=== PATIENT | male | born 1955 | race Caucasian/White ===

== ENCOUNTER 2018-04-12 09:27 | Inpatient (IN) | payer BC ==
--- NOTE | 2018-04-12 08:01 | HP ---
[facility] - Chief Complaint Chief Complaint: right knee pain - Past Medical History Allergies/Adverse Reactions: Allergies Allergy/AdvReac Type Severity Reaction Status Date / Time No Known Allergies Allergy Verified 03/25/18 11:26 - Current Medications Current Medications: Home Medications Medication Instructions Recorded Folic Acid/Multivit-Min/Lutein 1 each PO DAILY 03/25/18 [Multi-Vitamin Gummies] Satellite Physical Exam - Physical Examination General Appearance: Well Nourished, Well Developed, Alert & Oriented x3 ENT: Clear Lung: Normal air movement Heart: Regular rate & rhythm Extremities: Other (right knee- +swelling, + ttp, decr rom, nvi xrays show grade tricompartmental djd) Neurological: Intact, Alert, Oriented Satellite Impression/Plan - Impression/Plan Impression: right knee djd Operative Procedure: right haseeb tkr Date to be Performed: 04/12/18
[2018-04-12] MEDS ORDERED: TRANEXAMIC ACID 1000 MG/10 ML VIAL IVPUSH ONE (10:32)
[2018-04-12] MEDS ORDERED: GABAPENTIN 300 MG CAPSULE (FP) PO ONE (10:32)
[2018-04-12] MEDS ORDERED: oxyCODONE HCL 10 MG SUSTAINED ACTING TABLET PO ONE (10:32)
[2018-04-12] MEDS ORDERED: CELECOXIB 200 MG CAPSULE PO ONE (10:32)
[2018-04-12] MEDS ORDERED: CEFAZOLIN 2 GM in DEXTROSE 5%-WATER - 50 ML IVPB ONE (10:32)
[2018-04-12] MEDS ORDERED: BUPIVACAINE LIPOSOME/PF (EXPAREL) 266 MG/20 ML VIAL ONE (12:23)
[2018-04-12] MEDS ORDERED: MIDAZOLAM HCL 2 MG/2 ML SINGLE DOSE VIAL ONE ×2 (12:23→13:01)
[2018-04-12] MEDS ORDERED: PROPOFOL 20 ML ONE (13:01)
[2018-04-12] MEDS ORDERED: ceFAZolin SODIUM 1 GM VIAL ONE ×2 (13:23→14:06)
[2018-04-12] MEDS ORDERED: VANCOMYCIN 1,000 MG VIAL (RESTRICTED TO ID ONLY) ONE (13:23)
[2018-04-12] MEDS ORDERED: ONDANSETRON 4 MG/2 ML VIAL ONE (14:06)
[2018-04-12] MEDS ORDERED: DEXAMETHASONE SOD PHOSPHATE 4 MG/1 ML VIAL ONE (14:06)
[2018-04-12] MEDS ORDERED: TRANEXAMIC ACID 1000 MG/10 ML VIAL ONE (14:32)
[2018-04-12] MEDS ORDERED: VANCOMYCIN 1,000 MG VIAL (RESTRICTED TO ID ONLY) IVPB ONE (15:45)
[2018-04-12] MEDS ORDERED: MAG HYDROX/AL HYDROX/SIMETH 30 ML UNIT-DOSE CUP PO PRN (16:17)
[2018-04-12] MEDS ORDERED: MAGNESIUM HYDROX 2400MG/30ML ORAL SUSPENSION 30 ML CUP PO PRN (16:17)
[2018-04-12] MEDS ORDERED: ONDANSETRON 4 MG/2 ML VIAL IVPUSH PRN ×2 (16:17→16:35)
--- NOTE | 2018-04-12 16:19 | OP ---
Operative Note - Note: Operative Date: 04/12/18 (fabio) Pre-Operative Diagnosis: right knee djd Operation: right haseeb tkr Post-Operative Diagnosis: Same as Pre-op Surgeon: Marshall Fontanez Sales Agent Insurance: [employer] Anesthesiologist/CLINICAL APPLICATIONS MANAGER: Anderson Hubbard Anesthesia: Spinal, Local Specimens Removed: bone fragments Estimated Blood Loss (mls): 200 Operative Report Dictated: Yes
[2018-04-12] MEDS ORDERED: LACTATED RINGERS SOLUTION 1,000 ML IV SCH (16:30)
[2018-04-12] MEDS ORDERED: PROMETHAZINE HCL 25 MG/1 ML VIAL IVPUSH PRN (16:35)
[2018-04-12] MEDS ORDERED: LABETALOL HCL 5 MG/1 ML (100MG/20 ML VIAL) IVPUSH ONE ×2 (16:55→16:59)
[2018-04-12] MEDS ORDERED: LABETALOL HCL 5 MG/1 ML (100MG/20 ML VIAL) ONE (16:57)
[2018-04-12] MEDS ORDERED: METOPROLOL TARTRATE 5 MG/5 ML VIAL IVPUSH ONE ×2 (17:03→17:05)
[2018-04-12] MEDS ORDERED: METOPROLOL TARTRATE 25 MG TABLET (FP) PO ONE ×3 (17:13→23:15)
--- NOTE | 2018-04-12 17:19 | CON.CARD ---
Consult Consult Specialty:: cardiology Reason for Consultation:: new-onset AF (post-op TKR under spinal anesthesia). - History of Present Illness Chief Complaint: post-op right TKR; no chest pain or dyspnea; no palpitations History of Present Illness: 62 yr old man with PMHx current cigarette smoker, obesity, now admitted when noted to be in atrial fibrillation post-total right knee replacement under spinal anesthesia. No prior hx AF, HTN, or other cardiac pathologies.Pt says he has been extremely anxious in the days leading up tot eh surgery. Denies feeling palpitations, dizziness, or chest pain. - History Source History Provided By: Patient, Medical Record Limitations to Obtaining History: No Limitations - Past Medical History Cardio/Vascular: Yes: AFIB (new onset) Psych: Yes: Anxiety - Past Surgical History Past Surgical History: Yes: Joint Replacement - Alcohol/Substance Use Hx Alcohol Use: Yes (4 BEERS DAILY) - Smoking History Smoking history: Current some day smoker Have you smoked in the past 12 months: Yes Aproximately how many cigarettes per day: 4 If you are a former smoker, when did you quit?: SMOKES ON THE WEEKENDS Home Medications - Allergies Allergies/Adverse Reactions: Allergies Allergy/AdvReac Type Severity Reaction Status Date / Time No Known Allergies Allergy Verified 03/25/18 11:26 - Home Medications Home Medications: Ambulatory Orders Folic Acid/Multivit-Min/Lutein [Multi-Vitamin Gummies] 1 each PO DAILY 03/25/18 Aspirin [ASA -] 325 mg PO DAILY@0800 tablet 04/12/18 Oxycodone HCl/Acetaminophen [Percocet 5-325 mg Tablet -] 1 - 2 tab PO Q6H #50 tab MDD 8 04/12/18 Family Disease History - Family Disease History Family History: Denies Review of Systems - Review of Systems Constitutional: reports: No Symptoms Eyes: reports: No Symptoms HENT: reports: No Symptoms Neck: reports: No Symptoms Cardiovascular: reports: No Symptoms Respiratory: reports: No Symptoms Gastrointestinal: reports: No Symptoms Genitourinary: reports: No Symptoms Breasts: reports: No Symptoms Reported Musculoskeletal: reports: Joint Pain Integumentary: reports: Incision Neurological: reports: No Symptoms Endocrine: reports: No Symptoms Hematology/Lymphatic: reports: No Symptoms Psychiatric: reports: No Symptoms - Risk Factors Known Risk Factors: Yes: Age, Gender, Hypertension, Smoking Vital Signs: Vital Signs Temperature 98.1 F 04/12/18 16:27 Pulse Rate 112 H 04/12/18 16:35 Respiratory Rate 20 04/12/18 16:35 Blood Pressure 139/60 04/12/18 16:35 O2 Sat by Pulse Oximetry (%) 99 04/12/18 16:35 Constitutional: Yes: Anxious Eyes: Yes: WNL HENT: Yes: WNL Neck: Yes: WNL Respiratory: Yes: WNL Gastrointestinal: Yes: WNL Renal/: No: Anuria Cardiovascular: Yes: Regular Rate and Rhythm JVD: No Carotid Bruit: No PMI: Non-Displaced Heart Sounds: Yes: S1, S2, S4 Musculoskeletal: Yes: Joint Swelling, Muscle Pain, Other (s/p TKR) Edema: No Peripheral Pulses WNL: Yes Integumentary: Yes: Incision Neurological: Yes: WNL Psychiatric: Yes: Alert, Oriented, Other (anxiety) Imaging - Results EKG: Image Reviewed Problem List - Problems (1) Atrial fibrillation with RVR Assessment/Plan: Start PO metoprolol tartrate 25 mg bid, with IVPB 5 mg PRN As discussed with Dr. Mirza, if AF persists, will start IV heparin as soon as felt safe by surgical team (per orthopedist in this case: 24 hours from the surgery, which finished at 4 pm today). ECHO for LVEF, chamber sizes, valve status. TNI serially. TSH. Pt's note from PMD mentions no significant past medical Hx. Code(s): I48.91 - UNSPECIFIED ATRIAL FIBRILLATION (2) HTN (hypertension) Assessment/Plan: Started metoprolol; f/u HR and BP serially. F/u ECHO for LVEF, chambers sizes and thicknesses, valve status. Code(s): I10 - ESSENTIAL (PRIMARY) HYPERTENSION (3) Obesity Code(s): E66.9 - OBESITY, UNSPECIFIED (4) Total knee replacement status Assessment/Plan: f/u with surgeon. Code(s): Z96.659 - PRESENCE OF UNSPECIFIED ARTIFICIAL KNEE JOINT (5) Hyperlipidemia Assessment/Plan: f/u lipid panel Code(s): E78.5 - HYPERLIPIDEMIA, UNSPECIFIED
[2018-04-12 17:29] LABS: ALBUMIN 3.8 g/dl (3.4-5.0); ALK PHOS 123 U/L (45-117); ANION GAP 6 MMOL/L (8-16); BILIRUBIN,TOTAL 0.8 mg/dl (0.2-1); BLOOD UREA NITROGEN 16 mg/dl (7-18); CALCIUM 8.8 mg/dl (8.5-10); CHLORIDE 103 mmol/L (98-107); CO2 27 mmol/L (21-32); GLUCOSE,RANDOM 114 mg/dl (74-106); POTASSIUM 4.6 mmol/L (3.5-5.1); SGOT/AST 29 U/L (15-37); SGPT/ALT 25 U/L (13-61); SODIUM 136 mmol/L (136-145); TOT PROT 6.7 g/dl (6.4-8.2)
[2018-04-12] MEDS ORDERED: oxyCODONE HCL 5 MG TABLET PO ONE ×2 (17:35→20:00)
[2018-04-12] MEDS ORDERED: ACETAMINOPHEN 325 MG TABLET (FP) PO ONE (17:38)
[2018-04-12] MEDS ORDERED: oxyCODONE HCL 5 MG TABLET ONE (17:42)
[2018-04-12] MEDS ORDERED: ACETAMINOPHEN 325 MG TABLET (FP) ONE (17:43)
[2018-04-12 18:31] LABS: INR 1.06 (0.82-1.09); PROTHROMBIN TIME (PATIENT) 11.9 SEC (10.2-13.0)
--- NOTE | 2018-04-12 18:31 | SPEC ---
DATE OF OPERATION: 04/12/2018 PREOPERATIVE DIAGNOSIS: Degenerative joint disease, right knee. POSTOPERATIVE DIAGNOSIS: Degenerative joint disease, right knee. PROCEDURE: Right total knee replacement with robotic-assisted navigation (Makoplasty). SURGICAL ATTENDING: Marshall Fontanez M.D. PATIENT PORTAL CONCIERGE: Mina Crowell ANESTHESIA: Regional and spinal. CLOSURE: A cemented 6 femur, 6 tibia, 9 polyethylene, 38 patella, number 1 Vicryl fascia, 0 and 2-0 subcutaneous, 3-0 Monocryl subcuticular with skin glue for skin, 4-0 undyed Vicryl for pin site. ESTIMATED BLOOD LOSS: Approximately 100 mL. COMPLICATIONS: None. CONDITION: To recovery room in stable condition. DESCRIPTION OF OPERATIVE PROCEDURE: Patient was taken to the operating room on April 12, 2018. Regional and general anesthesia was administered by the anesthesiologist. IV Kefzol and TXA were administered by the anesthesiologist. Well-padded pneumatic tourniquet was placed on the proximal thigh. The right lower extremity was prepped and draped in the usual sterile fashion. The leg was exsanguinated with an Esmarch bandage, and tourniquet was inflated to 275 mmHg. A 12 to 15-cm longitudinal midline incision was incised while centered over the patella. The dissection was carried down to the level of the extensor mechanism with sufficient flaps made to adequately perform the procedure. A medial parapatellar arthrotomy was then performed. We made a cuff of tissue on the patella for later closure. The patella was inverted, the knee was flexed up. The fat pad was excised. The subperiosteal dissection was on the anteromedial proximal tibia around towards the direction of the MCL. The ACL and the PCL were transected and debrided. The meniscal remnants of the medial and lateral meniscus were debrided and removed. This allowed the knee to be able to "be brought forward." The checkpoints were malleted into the tibia and into the femur. Two threaded pins were drilled anteroposteriorly proximal to the knee through the previous incision, through the anterior cortex, then just engaging the posterior cortex. To these pins was assembled the femoral navigation array. One handbreadth below the tibial tubercle, 2 stab incisions were used to drill 2 threaded pins in parallel fashion into the tibia, again through the anterior cortex and just engaging the posterior cortex. To these pins was fastened the tibial arrays. The knee was then registered with the navigation device with center of rotation of the hip, medial and lateral malleoli, both checkpoints, and multiple points on both the femur and the tibia to ensure excellent registration. The navigation device was directed off the "top of the bubbles" on both the femur and the tibia. The navigation passed within less than 0.5 mm to plan. The knee was then thoroughly inspected to remove all osteophytes both medially, laterally, and on the femur and the tibia, and whatever osteophytes were available for dissection. The knee was then taken to extension and to flexion, and stressed in both varus and valgus to assess flexion gaps. The virtual position of the components on the navigation device were then manipulated to optimize the position and to ensure equal gaps in both flexion and extension, and both medially and laterally. The robot was then brought into the field and was registered. The cuts were then made both on the femur and on the tibia as to plan. All osteophytes posteriorly were then removed as well. The gaps were then measured again in flexion and extension to be equal in both flexion and extension and medial and laterally. The femoral notch was then made, as we were doing a posterior stabilizing component, with the appropriate sized box. Trial reduction of the femur achieved excellent [id number] fit. A tibial baseplate of appropriate polyethylene thickness was "floated in the knee." It was ensured to be in the excellent position by navigation devices and was pinned in place. The knee was taken through a range of motion, and found to have excellent stability throughout flexion and extension. The patella was calibrated for thickness and osteotomized down to the appropriate level. The appropriate lollipop was used to drill the lug holes in the patella and the trial button was applied. The knee was taken through a range of motion and found to have excellent tracking of the patella, and patella from full extension to full flexion. Trial components were removed, the keel was punched and drilled, and a sclerotic bone on the tibia was drilled to help with cement interdigitation. The knee was thoroughly irrigated with the pulse antibiotic research investigator. The real components were then cemented in using monitored arrangement cement techniques with antibiotic cement, and pressurization and extension. After the cement was hardened, the knee was thoroughly inspected to remove any extra cement. The real polyethylene component was then clipped into place. Range of motion, stability, and tracking were as described earlier. The checkpoints and the pins were removed. The knee was thoroughly irrigated with antibiotic irrigation. Vancomycin powder was placed into the knee for antibiotic prophylaxis. The medial parapatellar arthrotomy was then closed using number 1 Vicryl interrupted suture. After closure of the deep layer, the knee was taken through a range of motion, and found to have excellent stability of the patella with no dislocation and no undue tension on the repair. The subcutaneous was pulse antibiotic irrigated, and was then closed with 2-0 Vicryl, 3-0 Monocryl subcuticular with the skin glue for the skin. The distal tibial pin site was irrigated thoroughly as well and then closed with 4-0 undyed Vicryl. A sterile Aquacel dressing was applied, followed by a Paul dressing. Tourniquet was deflated. Total tourniquet time was approximately 75 minutes. No complications. Patient was awakened from anesthesia and transferred to recovery room in stable condition. Postoperative x-rays revealed excellent position of the components. Fernanda [id number]
[2018-04-12] MEDS: oxyCODONE HCL 10 MG SUSTAINED ACTING TABLET PO SCH (22:40)
[2018-04-12] MEDS: CEFAZOLIN 2 GM/D5W 2 GM/50 ML ML IVPB SCH (22:41)
[2018-04-12] MEDS: SENNOSIDES/DOCUSATE COMBO (SENNA PLUS) TABLET (UD) PO SCH (22:41)
[2018-04-12] MEDS: ACETAMINOPHEN 325 MG TABLET (FP) PO SCH (22:42)
[2018-04-13 02:16] VITALS: BMI 37.2
[2018-04-13] MEDS: oxyCODONE HCL 5 MG TABLET PO PRN ×4 (02:54→18:41)
[2018-04-13] MEDS: CEFAZOLIN 2 GM/D5W 2 GM/50 ML ML IVPB SCH (05:47)
[2018-04-13] MEDS: ACETAMINOPHEN 325 MG TABLET (FP) PO SCH ×4 (05:51→22:05)
[2018-04-13 06:46] LABS: HEMATOCRIT 40.5 % (35.4-49); HEMOGLOBIN 13.8 GM/dL (11.7-16.9); MCH 30.9 pg (25.7-33.7); MCHC 34.2 g/dl (32.0-35.9); MEAN CELL VOLUME 90.4 fl (80-96); MEAN PLT VOLUME 8.1 fl (7.5-11.1); PLATELET COUNT 252 K/MM3 (134-434); RBC 4.48 M/mm3 (4.00-5.60); RDW 12.5 % (11.9-15.9); WHITE BLOOD COUNT 15.4 K/mm3 (4.0-10.0)
[2018-04-13 07:14] LABS: CHOLESTEROL 157 mg/dL (50-200); HDL CHOLESTEROL 55 mg/dL (40-60); TRIGLYCERIDES 84 mg/dL (0-150)
[2018-04-13] MEDS ORDERED: ASPIRIN 325 MG TABLET PO SCH (08:00)
--- NOTE | 2018-04-13 08:40 | PN ---
Progress Note (short form) - Note Progress Note: PATIENT TRANSFERRED FROM [facility] TO NEW ONSRT AFIB POST OP FROM RIGHT [facility]. BANDAGES DRY AND INTACT CALF SOFT AND NT NVI + STRAIGHT LEG ABILITY AROM 0-60 IMP: DOING WELL ORTHOPEDICALLY POD #1 R TKR WITH NEW ONSET AFIB PLAN: PT PER USUAL TKR PROTOCOL. CARDIAC W/U IN PROGRESS. PATIENT CAN BE ANTICOAGULATED IF CARDIOLOGY REQUIRES IT. OTHERWISE CONTINUE WITH ASA 325 DAILY. PT
[2018-04-13] MEDS: METOPROLOL TARTRATE 25 MG TABLET (FP) PO SCH ×2 (09:06→22:04)
[2018-04-13] MEDS: oxyCODONE HCL 10 MG SUSTAINED ACTING TABLET PO SCH ×2 (09:06→22:04)
[2018-04-13] MEDS: SENNOSIDES/DOCUSATE COMBO (SENNA PLUS) TABLET (UD) PO SCH ×2 (09:07→22:05)
[2018-04-13] MEDS: MULTIVITAMINS (DAILY MVI) TABLET (FP) PO SCH (09:07)
[2018-04-13] MEDS: PANTOPRAZOLE 40 MG TABLET (FP) PO SCH (09:07)
--- NOTE | 2018-04-13 10:00 | PN ---
Progress Note, Physician History of Present Illness: 62 yr old man with PMHx current cigarette smoker, obesity,now admitted when noted to be in atrial fibrillation post-total right knee replacement under spinal anesthesia. No prior hx AF or other cardiac pathologies. - Current Medication List Current Medications: Active Medications Acetaminophen (Tylenol -) 650 mg PO Q6H [facility] Stop: 04/15/18 16:44 Last Admin: 04/13/18 05:51 Dose: Not Given Al Hydroxide/Mg Hydroxide (Mylanta Oral Suspension -) 30 ml PO Q4H PRN PRN Reason: DYSPEPSIA Magnesium Hydroxide (Milk Of Magnesia -) 30 ml PO DAILY PRN PRN Reason: CONSTIPATION Metoprolol Tartrate (Lopressor -) 25 mg PO BID [facility] Last Admin: 04/13/18 09:06 Dose: 25 mg Multivitamins/Minerals/Vitamin C (Tab-A-Vit -) 1 tab PO DAILY [facility] Last Admin: 04/13/18 09:07 Dose: 1 tab Ondansetron HCl (Zofran Injection) 4 mg IVPUSH Q6H PRN PRN Reason: NAUSEA Ondansetron HCl (Zofran Injection) 4 mg IVPUSH Q6H PRN PRN Reason: NAUSEA AND/OR VOMITING Oxycodone HCl (Roxicodone -) 5 mg PO Q3H PRN PRN Reason: PAIN LEVEL 1-5 Last Admin: 04/13/18 05:51 Dose: 5 mg Oxycodone HCl (Roxicodone -) 10 mg PO Q3H PRN PRN Reason: PAIN LEVEL 6-10 Last Admin: 04/13/18 02:54 Dose: 10 mg Oxycodone HCl (Oxycontin -) 10 mg PO BID [facility] Stop: 04/15/18 16:40 Last Admin: 04/13/18 09:06 Dose: 10 mg Pantoprazole Sodium (Protonix -) 40 mg PO DAILY [facility] Last Admin: 04/13/18 09:07 Dose: 40 mg Promethazine HCl (Phenergan Injection -) 12.5 mg IVPUSH Q6H PRN PRN Reason: NAUSEA-FOR RESCUE AFTER 15 MIN Senna/Docusate Sodium (Pericolace -) 1 tablet PO BID [facility] Last Admin: 04/13/18 09:07 Dose: 1 tablet - Objective Vital Signs: Vital Signs Temperature 98 F 04/13/18 05:00 Pulse Rate 76 04/13/18 05:00 Respiratory Rate 18 04/13/18 05:00 Blood Pressure 150/80 04/13/18 05:00 O2 Sat by Pulse Oximetry (%) 97 04/12/18 20:35 Eyes: Yes: WNL, Conjunctiva Clear, EOM Intact HENT: Yes: WNL, Atraumatic, Normocephalic Neck: Yes: WNL, Supple, Trachea Midline Cardiovascular: Yes: WNL, Regular Rate and Rhythm Respiratory: Yes: WNL, Regular, CTA Bilaterally Gastrointestinal: Yes: WNL, Normal Bowel Sounds Genitourinary: Yes: WNL Musculoskeletal: Yes: WNL Extremities: Yes: WNL Edema: No Integumentary: Yes: WNL Neurological: Yes: WNL, Alert, Oriented ...Motor Strength: WNL Psychiatric: Yes: WNL Labs: CBC, BMP 04/13/18 05:30 04/12/18 17:00 INR, PTT INR 1.06 (0.82-1.09) 04/12/18 17:50 Assessment/Plan brief episode ( few hrs) paroxysmal atrial fibrillation post-total right knee replacement under spinal anesthesia in sr now no h/o of htn morbidly obese echo TDS o/w wnl Plan since patient [id number] score is 0 no AC is needed will f/u as outpatient
--- NOTE | 2018-04-13 10:10 | EKG ---
Test Reason : Blood Pressure : / mmHG Vent. Rate : 107 BPM Atrial Rate : 312 BPM P-R Int : 000 ms QRS Dur : 082 ms QT Int : 324 ms P-R-T Axes : 000 017 037 degrees QTc Int : 432 ms ATRIAL FIBRILLATION WITH RAPID VENTRICULAR RESPONSE CANNOT RULE OUT ANTERIOR INFARCT , AGE UNDETERMINED ABNORMAL ECG WHEN COMPARED WITH ECG OF 22-MAR-2014 11:29, ATRIAL FIBRILLATION HAS REPLACED SINUS RHYTHM Confirmed by AMEE JIMENEZ, RAUL ([id number]) on 04/13/2018 10:10:10 AM Referred By: Marshall Fontanez Confirmed By:RAUL LUBIN MD
--- NOTE | 2018-04-13 11:31 | ECHO ---
Name: ERIC CÁRDENAS Exam:Adult Echocardiogram Study Date: 04/13/2018 08:23 AM Age: 62 yrs Reason For Study: A-Fib Height: 74 in Weight: 290 lb BSA: 2.5 m2 MMode/2D Measurements & Calculations IVSd: 1.0 cm Ao root diam: 3.1 cm LVIDd: 4.5 cm LA dimension: 3.4 cm LVIDs: 2.9 cm LVPWd: 1.2 cm EDV(Teich): 92.1 ml LVOT diam: 2.5 cm ESV(Teich): 30.9 ml Doppler Measurements & Calculations MV E max keron: 82.5 cm/sec Ao V2 max: 167.0 cm/sec MV A max keron: 76.2 cm/sec Ao max P.1 mmHg MV E/A: 1.1 MV dec time: 0.12 sec BRENNEN(V,D): 3.3 cm2 LV V1 max P.2 mmHg PA V2 max: 168.3 cm/sec LV V1 max: 114.0 cm/sec PA max P.3 mmHg Med Peak E' Keron: 10.2 cm/sec Med E/e': 8.1 Lat Peak E' Keron: 8.8 cm/sec Lat E/e': 9.4 Procedure A two-dimensional transthoracic echocardiogram with color flow and Doppler was performed. The study w as technically difficult with many images being suboptimal in quality. Left Ventricle The left ventricular size, thickness and function are normal. The left ventricle is not well visualiz ed. The left ventricular ejection fraction is normal. Left Ventricular Filling pattern is normal for age. Reg ional wall motion abnormalities cannot be excluded due to limited visualization. Right Ventricle The right ventricle is not well visualized. Atria Normal left and right atrial size and function. Mitral Valve There is mild mitral valve thickening. There is no mitral valve stenosis. There is trace mitral regur gitation. Tricuspid Valve The tricuspid valve is not well visualized. There is no tricuspid stenosis. There was insufficient TR detected to calculate RV systolic pressure. Aortic Valve The aortic valve is normal in structure and function. No hemodynamically significant valvular aortic stenosis. No aortic regurgitation is present. Pulmonic Valve The pulmonic valve is not well visualized. Great Vessels The aortic root is normal size. Pericardium/Pleura There is no pericardial effusion. Interpretation Summary The left ventricular size, thickness and function are normal The left ventricular ejection fraction is normal. The study was technically difficult with many images being suboptimal in quality. Left Ventricular Filling pattern is normal for age. There was insufficient TR detected to calculate RV systolic pressure. The left ventricle is not well visualized. The right ventricle is not well visualized. MD Carson Rollins 04/13/2018 11:31 AM
[2018-04-14] MEDS: oxyCODONE HCL 5 MG TABLET PO PRN (06:11)
[2018-04-14] MEDS: ACETAMINOPHEN 325 MG TABLET (FP) PO SCH ×2 (06:11→11:32)
[2018-04-14 07:10] LABS: HEMATOCRIT 35.6 % (35.4-49); HEMOGLOBIN 12.3 GM/dL (11.7-16.9); MCH 31.2 pg (25.7-33.7); MCHC 34.5 g/dl (32.0-35.9); MEAN CELL VOLUME 90.4 fl (80-96); PLATELET COUNT 217 K/MM3 (134-434); RBC 3.93 M/mm3 (4.00-5.60); RDW 12.9 % (11.9-15.9); WHITE BLOOD COUNT 13.7 K/mm3 (4.0-10.0)
--- NOTE | 2018-04-14 08:59 | PN ---
Progress Note (short form) - Note Progress Note: Ortho Pt seen and examined s/p right haseeb tkr pod #1 Selected Entries 04/14/18 06:00 Temperature 98.5 F Pulse Rate 77 Respiratory 18 Rate Blood Pressure 132/72 Laboratory Tests 04/14/18 06:20 WBC 13.7 H Hgb 12.3 Hct 35.6 Plt Count 217 dressing with minimal drainage, + swelling, rom 0-80 calf soft, nt, nvi a/p PT ASA 325 mg daily dvt ppx pain control d/c home today if cleared by cardio f/u in 1 week as outpt f/u with cardio as outpt
--- NOTE | 2018-04-14 09:02 | DS ---
Physical Examination Vital Signs: Vital Signs Temperature 98.5 F 04/14/18 06:00 Pulse Rate 77 04/14/18 06:00 Respiratory Rate 18 04/14/18 06:00 Blood Pressure 132/72 04/14/18 06:00 O2 Sat by Pulse Oximetry (%) 95 04/13/18 20:20 Labs: CBC, BMP 04/14/18 06:20 04/12/18 17:00 Discharge Summary Reason For Visit: OSTEOARTHRITIS Current Active Problems Atrial fibrillation with RVR (Acute) HTN (hypertension) (Acute) Hyperlipidemia (Acute) Obesity (Acute) Total knee replacement status (Acute) Procedures: Principal: right tkr Hospital Course: admitted for elective right haseeb tkr, had brief episode ( few hrs) paroxysmal atrial fibrillation, was transferred to [facility] for monitoring, ECHO was wnl and pt is in NSR, Cardio to f/u as outpt, stable for d/c Condition: Good - Instructions Diet, Activity, Other Instructions: Post-op Instructions-Total Knee Replacement Call the office for a follow-up appointment in 1 week - [phone] Aspirin 325mg daily for 6 weeks. Pain medication was sent into your pharmacy. Apply Graduated Compression Stockings (TEDs) to both lower extremities- remove daily for hygiene ONLY Apply Sequential Compression Device (SCDs) to both Lower extremities remove for PT and hygiene ONLY Apply cold packs to affected area for 15 minutes every 2 hours. Physical Therapist will come to your home for the first 5 days. You will be set up with outpatient PT at your first post-operative visit. Patient may ambulate as tolerated-encourage self care (at least every 2-3 hours while awake) with walker or cane Maintain Aquacel (waterproof) dressing to operative wound (will be removed by surgeon at first office visit) Shower with Aquacel dressing in place-if Aquacel integrity compromised, remove and apply dry sterile dressing and notify Orthopedist. DO NOT SHOWER unless Orthopedists approves without Aquacel dressing CONTACT THE OFFICE FOR ANY CHANGE IN YOUR CONDITION (for example-fever greater than 102 degrees, excessive bleeding from operative site, purulent drainage, severe swelling or pain) GO TO THE EMERGENCY ROOM IF THERE IS A MEDICAL EMERGENCY Knee Precautions: * Keep a rolled towel under affected heel while in bed or chair (to keep knee in extension) * Keep affected leg elevated except during mealtimes * DO NOT PLACE PILLOW UNDER AFFECTED KNEE * If you have any questions, please do not hesitate to call the office - . Referrals: Marshall Fontanez MD [Staff Physician] - Disposition: VNS/HOME HEALTH CARE - Home Medications Comprehensive Discharge Medication List: Ambulatory Orders Folic Acid/Multivit-Min/Lutein [Multi-Vitamin Gummies] 1 each PO DAILY 03/25/18 Aspirin [ASA -] 325 mg PO DAILY@0800 tablet 04/12/18 Oxycodone HCl/Acetaminophen [Percocet 5-325 mg Tablet -] 1 - 2 tab PO Q6H #50 tab MDD 8 04/12/18
[2018-04-14] MEDS: oxyCODONE HCL 10 MG SUSTAINED ACTING TABLET PO SCH (09:14)
[2018-04-14] MEDS: MULTIVITAMINS (DAILY MVI) TABLET (FP) PO SCH (09:15)
[2018-04-14] MEDS: PANTOPRAZOLE 40 MG TABLET (FP) PO SCH (09:15)
[2018-04-14] MEDS: METOPROLOL TARTRATE 25 MG TABLET (FP) PO SCH (09:15)
[2018-04-14] MEDS: SENNOSIDES/DOCUSATE COMBO (SENNA PLUS) TABLET (UD) PO SCH (09:15)
[2018-04-14 10:20] VITALS: BP 174/85; PULSE 90; TEMP 98
--- NOTE | 2018-04-14 11:01 | PN ---
Progress Note, Physician Chief Complaint: Pt a&oX3; ansiously awaits results of tests (EHCO; thyuroid). No palpitations, dyspnea, or chest pain. History of Present Illness: 62 yr old man with PMHx current cigarette smoker, obesity, now admitted when noted to be in atrial fibrillation post-total right knee replacement under spinal anesthesia. No prior hx AF, HTN, or other cardiac pathologies.Pt says he has been extremely anxious in the days leading up tot eh surgery. Denies feeling palpitations, dizziness, or chest pain. - Current Medication List Current Medications: Active Medications Acetaminophen (Tylenol -) 650 mg PO Q6H [facility] Stop: 04/15/18 16:44 Last Admin: 04/14/18 06:11 Dose: 650 mg Al Hydroxide/Mg Hydroxide (Mylanta Oral Suspension -) 30 ml PO Q4H PRN PRN Reason: DYSPEPSIA Magnesium Hydroxide (Milk Of Magnesia -) 30 ml PO DAILY PRN PRN Reason: CONSTIPATION Metoprolol Succinate (Toprol Xl -) 50 mg PO DAILY [facility] Multivitamins/Minerals/Vitamin C (Tab-A-Vit -) 1 tab PO DAILY [facility] Last Admin: 04/14/18 09:15 Dose: 1 tab Ondansetron HCl (Zofran Injection) 4 mg IVPUSH Q6H PRN PRN Reason: NAUSEA Ondansetron HCl (Zofran Injection) 4 mg IVPUSH Q6H PRN PRN Reason: NAUSEA AND/OR VOMITING Oxycodone HCl (Roxicodone -) 5 mg PO Q3H PRN PRN Reason: PAIN LEVEL 1-5 Last Admin: 04/13/18 18:41 Dose: 5 mg Oxycodone HCl (Roxicodone -) 10 mg PO Q3H PRN PRN Reason: PAIN LEVEL 6-10 Last Admin: 04/14/18 06:11 Dose: 10 mg Oxycodone HCl (Oxycontin -) 10 mg PO BID [facility] Stop: 04/15/18 16:40 Last Admin: 04/14/18 09:14 Dose: 10 mg Pantoprazole Sodium (Protonix -) 40 mg PO DAILY [facility] Last Admin: 04/14/18 09:15 Dose: 40 mg Promethazine HCl (Phenergan Injection -) 12.5 mg IVPUSH Q6H PRN PRN Reason: NAUSEA-FOR RESCUE AFTER 15 MIN Senna/Docusate Sodium (Pericolace -) 1 tablet PO BID [facility] Last Admin: 04/14/18 09:15 Dose: 1 tablet - Objective Vital Signs: Vital Signs Temperature 98 F 04/14/18 10:00 Pulse Rate 90 04/14/18 10:00 Respiratory Rate 18 04/14/18 10:00 Blood Pressure 174/85 H 04/14/18 10:00 O2 Sat by Pulse Oximetry (%) 95 04/13/18 20:20 Constitutional: Yes: Well Nourished, Anxious Eyes: Yes: WNL HENT: Yes: WNL Neck: Yes: WNL Cardiovascular: Yes: Regular Rate and Rhythm, S1, S2 Respiratory: Yes: WNL Gastrointestinal: Yes: Soft, Abdomen, Obese ...Rectal Exam: Yes: Deferred Genitourinary: No: Anuria Extremities: Yes: WNL Edema: No Peripheral Pulses WNL: Yes Integumentary: Yes: WNL Neurological: Yes: WNL Psychiatric: Yes: WNL Labs: CBC, BMP 04/14/18 06:20 04/12/18 17:00 INR, PTT INR 1.06 (0.82-1.09) 04/12/18 17:50 Abnormal Lab Results 04/14/18 06:20 WBC 13.7 H RBC 3.93 L - ....Imaging Other: Image Reviewed (telemetry: nsr) Problem List - Problems (1) Atrial fibrillation with RVR Assessment/Plan: ECHO: normal LVEF; normal chamger sizes and wall thicknesses. TSH: WNL ekg: NORMAL SINUS RHYTHM (Pt was reassured by these results; says he was "extremely nervous" that he might have abnormalities). Cholesterol: WNL (includinjg triglycerides, which pt says was high in the past: ? nonfasting then). Plan: Continue metoprolol for HR control (change to succinate for easier compliance. As noted, [id number] score ); no anticoagulant at this time. 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 Pt plans to lose weight. He drinks "about 20 beers a week, and smokes 10 cigarettes a week; the importance of changing these behaviors was discussed in detail. Code(s): I48.91 - UNSPECIFIED ATRIAL FIBRILLATION (2) Obesity Code(s): E66.9 - OBESITY, UNSPECIFIED (3) Total knee replacement status Assessment/Plan: f/u with surgeon. Code(s): Z96.659 - PRESENCE OF UNSPECIFIED ARTIFICIAL KNEE JOINT (4) Hyperlipidemia Assessment/Plan: normal values . Code(s): E78.5 - HYPERLIPIDEMIA, UNSPECIFIED
--- NOTE | 2018-04-14 17:09 | PATH ---
Surgical Pathology Report Patient Name: ERIC CÁRDENAS Med. Rec. #: [id number] /Age/Gender: 1955 (Age: 62) / M Account: [id number] Location: 4 TELEMETRY U Taken: 04/12/2018 Received: 04/12/2018 Reported: 04/14/2018 Physicians: Marshall Fontanez M.D. Specimen(s) Received BONES RIGHT KNEE Clinical History Right knee osteoarthritis Final Diagnosis BONES, KNEE, RIGHT, TOTAL KNEE REPLACEMENT MAKOPLASTY: BONE WITH DEGENERATIVE JOINT DISEASE, FIBROADIPOSE TISSUE, AND SYNOVIUM. Electronically Signed Kiah Gasca M.D. Gross Description Received in formalin labeled "bones right knee," is an 11.0 x 9.5 x 1.8 cm aggregate of multiple portions of bone and soft tissue, consistent with knee bones. No areas of eburnation are identified. The articular surfaces are burton-brown and diffusely granular. The underlying trabecular bone is yellow and hard. Billet Straightener sections are submitted in one cassette, following decalcification. /04/13/2018 [facility]04/13/2018
== END 2018-04-14 11:48 | disposition home health service (06) | DRG 470 ==
LOC: FM/S 09:27 → J4W 21:30
PROVIDERS: ADMIT Orthopaedic Surgery; ATTEND Orthopaedic Surgery
PROC: 8E0Y0CZ Robotic Assisted Procedure of Lower Extremity, Open Approach (ICD-10-PCS; 2018-04-12)
PROC: 0SRC0J9 Replacement of Right Knee Joint with Synthetic Substitute, Cemented, Open Approach (ICD-10-PCS; principal; 2018-04-12 14:32)
DX: M17.11 Unilateral primary osteoarthritis, right knee (principal); I48.0 Paroxysmal atrial fibrillation; E66.9 Obesity, unspecified; Z68.39 Body mass index [BMI] 39.0-39.9, adult; F17.210 Nicotine dependence, cigarettes, uncomplicated; E78.5 Hyperlipidemia, unspecified
CPT/HCPCS: 36415; 73560-TC-RT-FY; 80053; 80061; 82550; 82553; 83036; 83721; 84443; 84484; 85027; 85610; 85730; 88304-TC; 88311-TC; 93005; 93010; 93306-TC; 94760; 97116-GP; 97162-GP